=== PATIENT | female | born 2000 | race African-American/Black ===

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

== ENCOUNTER 2022-04-08 20:38 | Emergency (ER) | payer MEDICAID, OTHER ==
[~2022-04-08] VITALS: Ht 157.5 cm; Wt 116.0 kg
[~2022-04-08 20:38] MED LIST: ACET-2708 MT; HYDR-459 MT
[2022-04-08 21:15] VITALS: BP 144/84
== END 2022-04-08 23:19 | disposition home or self-care (01) ==
LOC: ER 20:38
DX: R13.10 Dysphagia, unspecified (principal); I10 Essential (primary) hypertension; Z68.42 Body mass index [BMI] 45.0-49.9, adult
CPT/HCPCS: 99281